=== PATIENT | female | born 1995 | race Caucasian/White ===

== ENCOUNTER 2016-05-11 20:17 | Outpatient (CLI) | payer OTHER ==
[~2016-05-11] VITALS: Ht 154.9 cm; Wt 97.1 kg
[~2016-05-11 20:17] MED LIST: DICLEGIS1 TCP PO; KEFLEX 500MG.500 MG PO; NOMEDS XX; PAXIL10 MG PO; PAXIL20 MG PO; PRENATAL PLUS1 TA1 PO; SEASONALE 30 MC1 TAB PO; VICODIN1 TAB PO
[2016-05-11 20:32] VITALS: BP 133/82
[2016-05-11 20:51] LABS: URINE BILIRUBIN - DIPSTICK NEGATIVE (NEG); URINE BLOOD 1+ (NEG)
[2016-05-14] MEDS ORDERED: NOMEDS XX (05:11)
== END 2016-05-11 21:25 | disposition home or self-care (01) ==
LOC: OB 20:17 → OBOUT 20:17
PROVIDERS: Nurse Practitioner Obstetrics & Gynecology
DX: O42.92 Full-term premature rupture of membranes, unspecified as to length of time between rupture and onset of labor (principal); Z3A.39 39 weeks gestation of pregnancy

== ENCOUNTER 2016-11-27 19:06 | Observation (INO) | payer OTHER ==
[~2016-11-27] VITALS: Ht 154.9 cm; Wt 91.9 kg
[~2016-11-27 19:06] MED LIST changes: +BENTYL10 M1 PO; +GAS RELIEF 8080 MG PO
[2016-11-27 19:10] VITALS: BP 158/81
[2016-11-27 19:37] LABS: HEMOGLOBIN 14.3 g/dL (12.2-16.2); LYMPH # 2.2 K/mm3 (0.7-4.5); LYMPH % 12.7 % (10-50.0)
[2016-11-27 19:39] LABS: URINE BILIRUBIN - DIPSTICK NEGATIVE (NEG); URINE BLOOD NEGATIVE (NEG)
--- NOTE | 2016-11-27 20:18 | Emergency Room Report ---
History of Present Illness Time Seen by 1999 Presenting Problem in Triage Pt arrived:Walked Presenting Problem:right lower abdominal pain since 1230 today. no n/v/d. 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 N Clinical Suspician of Infection? N Mental Status: 1 - Regular (Normal Baseline) Sepsis Risk:Possible Sepsis Risk Have you (or family members/close friends) recently traveled outside the [place]? N If Yes, where/when: Have you had exposure to infectious disease within the past month? TB? Other? Specify: Source patient, RN notes reviewed, family, old records Exam Limitations no limitations Comment onset or lower abd pain since noon with no fever or rash and no trauma Cardiac Chest Pain Chest pain indicative of cardiac No Timing/Duration this evening Severity moderate ALLERGIES Coded Allergies: No Known Allergies (09/20/16) History Medical History General CAD? No Angina: No AL: No Hypertension? No Hyperlipidemia? No CHF? No DVT? No PE? No COPD? No Asthma? No Anemia? No GERD? No Gastric ulcers? No GI Bleed? No Hernia? No Thyroid Problems? No Hypothyroidism? No CVA? No Seizures? No Diabetes? No Renal Insuffiency? No End Stage Renal Disease? No UTI? No Stones? No BPH? No GB Disease: Yes Nephritic Syndrome? No Asplenia? No Hepatitis? No Sickle Cell Disease? No Arthritis? No Migraines? No Cataracts? No Glaucoma? No MRSA? No HIV? No TB? No Anxiety? No Depression? No Cancer? No More? 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 Respiratory denies cough, denies shortness of breath, denies wheezing Cardiovascular denies chest pain, denies palpitations, denies syncope Gastrointestinal see HPI, abdominal pain, nausea, denies vomiting Genitourinary denies: dysuria, frequency, hesitancy, hematuria. Musculoskeletal denies back pain, denies joint pain, denies joint swelling, denies neck pain Skin denies rash Psychiatric/Neurological denies headache, denies seizure Physical Exam Vital Signs Vital Signs Date Time Temp Pulse Resp B/P Pulse O2 O2 Flow FiO2 Ox Delivery Rate 11/27 2006 100.5 132 20 135/72 100 11/27 1909 99.1 127 20 158/81 100 - WBC >12,000 or <4,000 or 10% bands? 2 or more SIRS Criteria Met? B/P:135/72 MAP:106 Creatinine >2.0? UA output<0.5ml/kg/hr for 2 hrs? Platelet count >100,000? Lactate >2.0mmol/1? INR >1.2 or PTT > than 60 sec? Evidence of Organ Dysfunction? Provider documented clinical suspician of infection? N Sepsis Criteria Count: 2 Sepsis Risk: Possible Sepsis Risk General Appearance no apparent distress Eye Exam - bilateral eye PERRL, bilateral eye EOMI Ear, Nose, Throat normal ENT inspection Neck supple Respiratory Status No: respiratory distress. Lung Sounds bilateral: lungs clear. Cardiovascular regular rate/rhythm, no murmur Peripheral Pulses Pulses normal Yes Gastrointestinal soft, no organomegaly, no pulsatile mass, no guarding, no rebound Extremities normal inspection Strength 4 Upper Ext (L), 4 Upper Ext (R), 4 Lower Ext (L), 4 Lower Ext (R) Neurologic alert, bird raiser II-XII nml as tested, no motor/sensory deficits Reflexes Reflexes normal No Mental status normal mood/affect Skin intact Medical Decision Making LABS/Meds/Orders Pt receiving controlled substance in ED? No Results/Orders Laboratory Tests 11/27/161914: Sodium 140, Potassium 3.7, Chloride 101, Carbon Dioxide 31, BUN 9, Creatinine 0.8, Estimated Creat Clear 154, Estimated GFR (MDRD) 91, Glucose 99, Calcium 9.5 , Total Bilirubin 0.5, AST 22, ALT 36, Alkaline Phosphatase 110, Total Protein 8.7 H, Albumin 4.2, Globulin 4.5 H, Albumin/Globulin Ratio 0.9 L, Amylase 41, Lipase 158, WBC 17.0 H, RBC 4.87, Hgb 14.3, Hct 41.7, MCV 85.5, RDW 13.3, Plt Count 187, MPV 8.6, Gran % 82.7 H, Gran # 14.1 H, Total Counted 100, Lymphocytes % 12.7, Monocytes % 4.3, Eosinophils % 0.3, Basophils % 0.1, Neutrophils 86 H, Lymphocytes (Manual) 14, Lymphocytes # 2.2, Monocytes # 0.7, Eosinophils # 0.0, Basophils # 0.0, Platelet Estimate NORMAL, Anisocytosis 1+, PUBS MCHC 34.3, MCH 29.3, Urine Color YELLOW, Urine Appearance SL CLOUDY, Urine pH 7.5, Ur Specific [place] 1.015, Urine Protein NEGATIVE, Urine Ketones NEGATIVE, Urine Blood NEGATIVE, Urine Nitrate NEGATIVE, Urine Bilirubin NEGATIVE , Urine Urobilinogen 1.0, Ur Leukocyte Esterase NEGATIVE, Urine RBC NONE, Urine WBC OCC, Ur Squamous Epith Cells 10-20, Amorphous Sediment 3+, Urine Bacteria 2+ , Urine Glucose NEGATIVE Current Medication Orders Sig/Tres Start time Last Medication Dose Route Stop Time Status Admin Sodium Chloride 1,000 ML .STK-MED ONE 11/28 2031 DC IV Sodium Chloride 1,000 ML .Q1H1M 11/27 2029 AC 11/27 IV 11/27 Sodium Chloride 10 ML PRN PRN 11/27 2029 AC IV 11/28 2019 Orders Procedure Date/time Status CT ABD & PELVIS W/O CONTRAST 11/[address] ABD W/RLQ PAIN REQ 11/27 1929 Complete IV SALINE LOCK 11/28 1927 Active URINALYSIS/COMPLETE 11/28 1927 Complete URINE 11/28 1927 Complete LIPASE 11/28 1927 Complete CBC WITH AUTO DIFF 11/28 1927 Complete CHEM 12 PROFILE 11/28 1927 Complete AMYLASE 11/28 1927 Complete CULTURE, URINE 11/27 1914 Active DIFFERENTIAL-WBC 11/27 1914 Complete XRAY/CT/US XRAY/CT/US CT abdomen, pelvis CT interpretation by discussed w/radiologist Time results known: 2046 CT Results abnormal (appendicitis) Departure Departure Time of Disposition 2046 Disposition Still a Patient Clinical Impression Primary Impression: Appendicitis, acute Qualifiers: Acute appendicitis type: with localized peritonitis Qualified Code: K35.3 - Acute appendicitis with localized peritonitis Condition STABLE Referrals SANDRA DEAN (Family) discussed with dr shoemaker ED Critical Care Critical Care No at [id number]
[2016-11-27 20:23] LABS: NEUTROPHILS 86 % (42-76)
--- NOTE | 2016-11-27 21:45 | HISTORY AND PHYSICAL REPORT ---
History of Present Illness Chief Complaint: RIGHT lower quadrant abdominal pain History of Present Illness: This is a 21-year-old female who presented to the emergency department after developing RIGHT lower quadrant abdominal pain around noon today. She states that she had "a little bit of sickness yesterday" but no significant pain. Today she developed fairly significant right-sided lower quadrant pain, but her "sickness" had essentially resolved. No fevers. No nausea or vomiting over the past 12 hours. Bowel movements have been fairly normal. A CT scan of her abdomen and pelvis showed signs consistent with early appendicitis. She has recently been treated for cholecystitis and choledocholithiasis with cholecystectomy and ERCP. These treatments were in late August/early September of this year. She has subsequently had her stent removed by way of follow-up ERCP. Past Medical History Denies: CAD, hypertension, asthma, diabetes mellitus. Surgical History Previous Surgery?Y Eye Exp.lap ORAL SURGERY Cholecystectomy, ERCP Allergies Coded Allergies: No Known Allergies (09/20/16) Medications: Reported Medications No Known Home Medications Family history Postive for: HTN. Smoking Hx Tobacco: No Smoker: Never Smoker Type: N/A Packs/day: N/A Are you/the child exposed to second-hand smoke: No Alcohol Alcohol: No Hx of Drug Use Drug Use? No Review of Systems Constitutional No: chills. Skin No: bruising. Immune/allergy No: anaphalaxis. Eyes No: vision loss. ENT No: nose bleed. Respiratory No: pneumonia. Cardiovascular No: palpitations. GI No: nausea, vomitting. (female) No: hematuria. Musculoskeletal No: myalgias. Heme No: petechia. Endocrine No: polydipsia. Neurological No: change in LOC, confusion. Psychiatric No: anxious. Physical Exam VS/I&O Vital Signs Date Time Temp Pulse Resp B/P Pulse O2 O2 Flow FiO2 Ox Delivery Rate 11/27 2105 99.7 125 20 110/71 100 11/27 2006 100.5 132 20 135/72 100 11/27 1910 99.1 127 20 158/81 100 Exam General appearance no acute distress Neck full ROM Respiratory no distress Cardiovascular regular rate and rhythm Abdomen soft (+ TTP in RLQ) Extremities moves all, no edema, no evidence of DVT Neurological CNII-XIII grossly intact, normal speech Psychiatric normal mood Skin no gross abnormalities Findings/Data CT scan of abdomen and pelvis reveals changes consistent with likely early appendicitis Dx/assessment/plan Problem List 1. Appendicitis, acute Code status: full code Discussed with: family, patient Plan: Laparoscopic appendectomy-I have discussed the risks and benefits and she agrees to proceed at [id number]
--- NOTE | 2016-11-27 23:25 | Operative Note ---
Surgeon/Diagnoses Surgeon/Atmospheric Chemist(s) Date of procedure: 11/27/16 Surgeon: MD Tenzin Hernadez Diagnoses Pre-op diagnosis: Appendicitis Post-op diagnosis same Procedure Procedure Procedure: Laparoscopic Appendectomy Indications: BARNEY ACEVEDO is a 21 year-old Female with a history of RIGHT lower quadrant pain and radiographic evidence of appendicitis Findings: Significant appendiceal inflammation with patchy suppuration No sign of obvious perforation Procedure Description: After informed consent was obtained, the patient was taken to the operating room and placed in the supine position. General anesthesia was induced and her abdomen was prepped and draped in a sterile fashion. After infiltration with local anesthetic and infraumbilical incision was made. A Veress needle was placed in position. The abdomen was insufflated. A 12 mm optical trocar was placed in position. Under direct visualization a 5 mm trocar was placed in the suprapubic position. An additional 5 mm trocar was placed in the LEFT lower quadrant. The appendix was elevated. Fairly severe inflammation with patchy suppuration was noted. No definitive perforation was seen. The mesoappendix was taken with harmonic guillermo. Endoloops (3) were used at the base of the appendix. The appendix was then transected with harmonic guillermo and placed in a retrieval bag. The appendix was removed through the infraumbilical trocar site. The RIGHT lower quadrant was thoroughly irrigated. No active bleeding or sign of injury was noted. The fascia at the infraumbilical trocar site was reapproximated utilizing the roberto carlos-close device. Pneumoperitoneum was released as the remaining trocars were removed. All wounds were irrigated and skin was closed with 4-0 Monocryl in a subcuticular fashion. Steri-Strips were applied. The patient's anesthetic agents were reversed and she was extubated prior to transfer to recovery. EBL (ml): 15 Anesthesia: GETA Complications: No immediate Specimens: Appendix Disposition Disposition: Stable to recovery from where she will be admitted to the floor. at [id number]
--- NOTE | 2016-11-27 23:33 | Anesthesia Record ---
Anesthesia Record Part I Total IV fluids: 2200 EBL (ml): 15 Urine Output: 400 B/P: 106/53 % SaO2: 95 Pulse: 105 Resps: 16 Temp: 98.6 Patient is: Drowsy, Nasal O2, Stable Stable to PACU at: 2325 at 2336
--- NOTE | 2016-11-27 23:34 | Anesthesia Record ---
Anesthesia Record Part II Discharge time: 2354 Destination: Second Floor PACU nurse assessment review? Yes Patient is: Stable Anesthesia complications? No at 5511
[2016-11-27 23:55] VITALS: BP 109/57
[2016-11-28] VITALS (16 sets, daily range): BP systolic 102–152; BP diastolic 52–70
[2016-11-28 00:11] LABS: URINE BILIRUBIN - DIPSTICK NEGATIVE (NEG); URINE BLOOD NEGATIVE (NEG)
--- NOTE | 2016-11-28 06:40 | RADIOLOGY REPORT PS360 ---
CT ABD PELVIS W/O CONTRAST CLINICAL INDICATION: RLQ PAIN SINCE 12:30 ORDERING PHYSICIAN: Scott Monet MD PATIENT AGE: 21 years COMPARISON: 02/17/2012 TECHNIQUE: Axial images obtained with sagittal and coronal reformats. PROCEDURE: Oral Contrast: None IV Contrast: None . FINDINGS: Lung bases are clear. There is diffuse hepatic steatosis. There has been prior cholecystectomy without obvious biliary dilatation. The spleen is mildly enlarged at 14 cm. The adrenal glands, pancreas, kidneys, ureters, and urinary bladder are unremarkable. No pelvic mass. The mid and distal aspect of the appendix is mildly distended and fluid-filled with mild stranding of the periappendiceal fat. The appendix measures up to 10 mm. No abscess or free air apparent. No intestinal obstruction, free air, diverticulitis, or pelvic mass evident. No acute bony anomalies. There are small mesenteric lymph nodes nonspecific IMPRESSION: The findings are consistent with appendicitis. No abscess or perforation apparent
[2016-11-28 06:45] LABS: LYMPH % 9.1 % (10-50.0)
--- NOTE | 2016-11-28 07:11 | POST-OP PROGRESS NOTE ---
Post Op Subjective Data Patient is post-op day 1 Subjective data: Feels "pretty good". Post op objective data Vitals,I&O,and Labs: Vital signs, intake and output,and available lab data for the last 24 hours is as noted below. Vital Signs Date Time Temp Pulse Resp B/P Pulse O2 O2 Flow FiO2 Ox Delivery Rate 11/28 0540 97.8 73 16 108/66 96 09/07 0540 98.4 76 16 152/70 93 09/07 0440 98.2 75 16 108/63 95 09/07 0240 98.4 81 16 107/63 96 09/07 0210 98.0 74 16 103/52 95 09/07 0140 98.2 74 16 105/60 96 09/07 0110 98.0 86 16 107/65 97 09/07 0052 16 09/07 0040 97.8 75 16 102/60 96 09/07 0025 98.0 78 16 109/63 96 09/07 0019 87 09/07 0019 98.0 92 16 107/62 09/07 0019 96 ROOM AIR 09/07 0010 98.0 92 16 107/62 96 09/07 0005 98.6 /06 2355 97.2 87 16 109/57 96 ROOM AIR 09/06 2355 97.2 87 16 109/57 96 ROOM AIR 09/06 2345 97 16 115/77 96 ROOM AIR 09/06 2335 92 16 108/60 97 OXYGEN /06 2333 98.6 105 16 106/53 95 09/06 2325 98.6 105 16 106/53 95 OXYGEN /06 2235 125 20 110/71 100 /2140 99.7 125 20 110/71 100 /06 6 99.7 125 20 110/71 100 /2006 100.5 132 20 135/72 100 09/06 1910 99.1 127 20 158/81 100 09/06 1500 09/06 2300 / 0700 Intake Total 700 460 Output Total 400 Balance 700 60 Intake, IV 700 435 Intake, Oral 25 Intake, Tube 0 Irrigant Output, 0 Emesis Output, 0 Estimated Blood Loss Output, Other 0 Output, Urine 400 Patient 87.544 kg 91.882 kg Weight Laboratory Tests Test Result Date Time Chemistry Sodium (mmoL/L) 139 11/28 0620 Potassium (mmoL/L) 4.1 11/29 619 Chloride (mmoL/L) 104 11/29 619 Carbon Dioxide (mmoL/L) 25 11/29 619 BUN (mg/dL) 8 11/29 619 Creatinine (mg/dL) 0.8 11/29 619 Estimated Creat Clear (ML/MIN) 161 11/29 619 Estimated GFR (MDRD) (ML/MIN) 91 11/29 619 Glucose (mg/dL) 164 11/29 619 Calcium (mg/dL) 8.6 11/29 619 Total Bilirubin (mg/dL) 0.5 11/27 1914 AST (U/L) 22 11/27 1914 ALT (U/L) 36 11/27 1914 Alkaline Phosphatase (U/L) 110 11/27 1914 Total Protein (gm/dL) 8.7 11/27 1914 Albumin (gm/dL) 4.2 11/27 1914 Globulin (gm/dL) 4.5 11/27 1914 Albumin/Globulin Ratio 0.9 11/27 1914 Amylase (U/L) 41 11/27 1914 Lipase (U/L) 158 11/27 1914 Hematology WBC (K/MM3) 17.0 11/27 1914 RBC (M/mm3) 4.87 11/27 1914 Hgb (g/dL) 14.3 11/27 1914 Hct (%) 41.7 11/27 1914 MCV (fl) 85.5 11/27 1914 RDW (%) 13.3 11/27 1914 Plt Count (K/mm3) 187 11/27 1914 MPV (fl) 8.6 11/27 1914 Gran % (%) 82.7 11/27 1914 Gran # (K/mm3) 14.1 11/27 1914 Total Counted (#CELLS) 100 11/27 1914 Lymphocytes % (%) 12.7 11/27 1914 Monocytes % (%) 4.3 11/27 1914 Eosinophils % (%) 0.3 11/27 1914 Basophils % (%) 0.1 11/27 1914 Neutrophils (%) 86 11/27 1914 Lymphocytes (Manual) (%) 14 11/27 1914 Lymphocytes # (K/mm3) 2.2 11/27 1914 Monocytes # (K/mm3) 0.7 11/27 1914 Eosinophils # (K/mm3) 0.0 11/27 1914 Basophils # (K/MM3) 0.0 11/27 1914 Platelet Estimate NORMAL 11/27 1914 Anisocytosis 1+ 11/27 1914 PUBS MCHC (g/dl) 34.3 11/27 1914 Immunology MCH (pg) 29.3 11/27 1914 Urines Urine Color YELLOW 11/27 2154 Urine Appearance CLEAR 11/27 2154 Urine pH 8.0 11/27 2154 Ur Specific [place] 1.010 11/27 2154 Urine Protein (mg/dL) NEGATIVE 11/27 2154 Urine Ketones (mg/dL) NEGATIVE 11/27 2154 Urine Blood NEGATIVE 11/27 2154 Urine Nitrate NEGATIVE 11/27 2154 Urine Bilirubin NEGATIVE 11/27 2154 Urine Urobilinogen (E.U./dL) 0.2 11/27 2154 Ur Leukocyte Esterase NEGATIVE 11/27 2154 Urine RBC (rbc/hpf) OCC 11/27 2154 Urine WBC (wbc/hpf) OCC 11/27 2154 Ur Squamous Epith Cells (#/hpf) 3-5 11/27 2154 Amorphous Sediment 3+ 11/27 1914 Urine Bacteria 1+ 11/27 2154 Urine Glucose NEGATIVE 11/27 2154 Physical Exam VS/I&O Vital Signs Date Time Temp Pulse Resp B/P Pulse O2 O2 Flow FiO2 Ox Delivery Rate 11/29 639 97.8 73 16 108/66 96 11/28 0540 98.4 76 16 152/70 93 11/28 0440 98.2 75 16 108/63 95 11/28 0240 98.4 81 16 107/63 96 11/28 0210 98.0 74 16 103/52 95 11/28 0140 98.2 74 16 105/60 96 11/28 0110 98.0 86 16 107/65 97 /07 0052 16 / 0040 97.8 75 16 102/60 96 / 0025 98.0 78 16 109/63 96 11/28 0019 87 / 0019 98.0 92 16 107/62 11/28 0019 96 ROOM AIR 11/28 0010 98.0 92 16 107/62 96 / 0005 98.6 11/27 2354 97.2 87 16 109/57 96 ROOM AIR 11/27 2354 97.2 87 16 109/57 96 ROOM AIR 11/27 2345 97 16 115/77 96 ROOM AIR 11/27 2335 92 16 108/60 97 OXYGEN 11/27 2333 98.6 105 16 106/53 95 11/27 2325 98.6 105 16 106/53 95 OXYGEN 11/27 2235 125 20 110/71 100 11/27 2141 99.7 125 20 110/71 100 11/27 2106 99.7 125 20 110/71 100 11/27 2006 100.5 132 20 135/72 100 11/27 1910 99.1 127 20 158/81 100 I&O 11/28 0700 Intake Total 1160 Output Total 400 Balance 760 Intake, IV 1135 Intake, Oral 25 Intake, Tube 0 Irrigant Output, 0 Emesis Output, 0 Estimated Blood Loss Output, Other 0 Output, Urine 400 Patient 91.882 kg Weight Exam General appearance no acute distress Respiratory no distress Cardiovascular regular rate and rhythm Abdomen soft (dressing intact) Post op patient plan Diagnoses: Suppurative appendicitis-overall, doing fairly well status post laparoscopic appendectomy Plan: Advance diet, Ambulate, Antibiotics This inpt stay is expected to cross 2 MNs from start of care Yes Additional data: IV antibiotics will be continued beyond the initial 24-hour postoperative period secondary to severe appendicitis with suppuration. Antibiotic Stewardship (2) Current Culture Results Microbiology 11/27 1914 URINE CC: Urine Culture - RECD Infxn that will respond? Yes Right drug,dose,and route? Yes More targeted antbx? No How long atbx needed? 5 at 0711
[2016-11-28 07:13] LABS: HEMOGLOBIN 12.2 g/dL (12.2-16.2)
--- NOTE | 2016-11-28 07:27 | PHARMACY CLINIC NOTE ---
Patient Demographics Patient Demographics Admission date: 11/27/16 Date: 11/28/16 Time: 725 Allergies Coded Allergies: No Known Allergies (11/27/16) HEIGHT- FT: 5 IN: 1.00 K.882 VTE General Information Labs: Laboratory Tests 11/28 1915 Hematology Hgb (12.2 - 16.2 g/dL) 12.2 14.3 Hct (37.0 - 47.0 %) 36.6 L 41.7 Plt Count (142 - 424 K/mm3) 174 187 Disclaimer The following section includes nursing documentation that has been pulled in for pharmacy review. Patient's VTE score: 0 Patient's VTE Risk: VERY LOW RISK Clinical trial participant? No VTE prophylaxis NQF [id number] VTE prophylaxis ordered? Yes Type of prophylaxis/treatment: ICD (post op) at 0726
[2016-11-29 00:02] VITALS: BP 115/64
[2016-11-29 03:53] VITALS: BP 124/58
--- NOTE | 2016-11-29 06:31 | POST-OP PROGRESS NOTE ---
Post Op Subjective Data Patient is post-op day 2 Subjective data: No complaints Post op objective data Vitals,I&O,and Labs: Vital signs, intake and output,and available lab data for the last 24 hours is as noted below. Vital Signs Date Time Temp Pulse Resp B/P Pulse O2 O2 Flow FiO2 Ox Delivery Rate 11/29 0353 98.0 59 20 124/58 94 ROOM AIR 11/29 0002 97.9 57 20 115/64 95 ROOM AIR 11/28 2137 20 11/28 1945 98.1 80 24 123/53 98 11/28 1924 98.1 80 24 123/53 98 ROOM AIR 11/28 1547 98.0 81 18 122/66 99 ROOM AIR 11/28 1142 18 11/28 1132 97.7 71 18 112/56 99 ROOM AIR 11/28 0833 98.0 70 18 107/63 95 11/28 0720 98.0 70 18 107/63 95 ROOM AIR 11/28 0640 97.8 73 16 108/66 96 / 1500 11/28 2300 11/29 0700 Intake Total 654 142 3938 Output Total Balance 212 841 3929 Intake, IV 1172 Intake, Oral 840 600 Laboratory Tests Test Result Date Time Chemistry Sodium (mmoL/L) 139 11/29 619 Potassium (mmoL/L) 4.1 11/29 619 Chloride (mmoL/L) 104 11/29 619 Carbon Dioxide (mmoL/L) 25 11/29 619 BUN (mg/dL) 8 11/29 619 Creatinine (mg/dL) 0.8 11/29 619 Estimated Creat Clear (ML/MIN) 161 11/29 619 Estimated GFR (MDRD) (ML/MIN) 91 11/29 619 Glucose (mg/dL) 164 11/29 619 Calcium (mg/dL) 8.6 11/29 619 Total Bilirubin (mg/dL) 0.5 11/27 1914 AST (U/L) 22 11/27 1914 ALT (U/L) 36 11/27 1914 Alkaline Phosphatase (U/L) 110 11/27 1914 Total Protein (gm/dL) 8.7 11/27 1914 Albumin (gm/dL) 4.2 11/27 1914 Globulin (gm/dL) 4.5 11/27 1914 Albumin/Globulin Ratio 0.9 11/27 1914 Amylase (U/L) 41 11/27 1914 Lipase (U/L) 158 11/27 1914 Hematology WBC (K/MM3) 11.4 11/29 619 RBC (M/mm3) 4.23 11/29 619 Hgb (g/dL) 12.2 11/29 619 Hct (%) 36.6 11/29 619 MCV (fl) 86.5 11/29 619 RDW (%) 13.4 11/29 619 Plt Count (K/mm3) 174 11/29 619 MPV (fl) 9.0 11/29 619 Gran % (%) 88.7 11/29 619 Gran # (K/mm3) 10.1 11/29 619 Total Counted (#CELLS) 100 11/27 1914 Lymphocytes % (%) 9.1 11/29 619 Monocytes % (%) 2.0 11/29 619 Eosinophils % (%) 0.2 11/29 619 Basophils % (%) 0.0 11/29 619 Neutrophils (%) 86 11/27 1914 Lymphocytes (Manual) (%) 14 11/27 1914 Lymphocytes # (K/mm3) 1.0 11/29 619 Monocytes # (K/mm3) 0.2 11/29 619 Eosinophils # (K/mm3) 0.0 11/29 619 Basophils # (K/MM3) 0.0 11/29 619 Platelet Estimate NORMAL 11/27 1914 Anisocytosis 1+ 11/27 1914 PUBS MCHC (g/dl) 33.0 11/29 619 Immunology MCH (pg) 28.5 11/29 619 Urines Urine Color YELLOW 11/27 2154 Urine Appearance CLEAR 11/27 2154 Urine pH 8.0 11/27 2154 Ur Specific [place] 1.010 11/27 2154 Urine Protein (mg/dL) NEGATIVE 11/27 2154 Urine Ketones (mg/dL) NEGATIVE 11/27 2154 Urine Blood NEGATIVE 11/27 2154 Urine Nitrate NEGATIVE 11/27 2154 Urine Bilirubin NEGATIVE 11/27 2154 Urine Urobilinogen (E.U./dL) 0.2 11/27 2154 Ur Leukocyte Esterase NEGATIVE 11/27 2154 Urine RBC (rbc/hpf) OCC 11/27 2154 Urine WBC (wbc/hpf) OCC 11/27 2154 Ur Squamous Epith Cells (#/hpf) 3-5 11/27 2154 Amorphous Sediment 3+ 11/27 1914 Urine Bacteria 1+ 11/27 2154 Urine Glucose NEGATIVE 11/27 2154 Physical Exam VS/I&O Vital Signs Date Time Temp Pulse Resp B/P Pulse O2 O2 Flow FiO2 Ox Delivery Rate 11/29 0353 98.0 59 20 124/58 94 ROOM AIR 11/29 0002 97.9 57 20 115/64 95 ROOM AIR 11/28 2137 20 11/28 1945 98.1 80 24 123/53 98 / 1924 98.1 80 24 123/53 98 ROOM AIR 11/28 1547 98.0 81 18 122/66 99 ROOM AIR 11/28 1142 18 11/28 1132 97.7 71 18 112/56 99 ROOM AIR 11/28 0833 98.0 70 18 107/63 95 /07 0720 98.0 70 18 107/63 95 ROOM AIR 11/28 0640 97.8 73 16 108/66 96 I&O 11/29 0700 Intake Total 2612 Output Total Balance 2612 Intake, IV 1172 Intake, Oral 1440 Exam General appearance no acute distress Respiratory no distress Cardiovascular regular rate and rhythm Abdomen soft (dressing intact) Post op patient plan Diagnoses: Suppurative appendicitis-overall, doing fairly well status post laparoscopic appendectomy Plan: Advance diet, Ambulate, Antibiotics This inpt stay is expected to cross 2 MNs from start of care Yes Additional data: Follow-up morning labs. She will likely be discharged home later today with continued by mouth antibiotics secondary to severe appendicitis with suppuration. Antibiotic Stewardship (2) Infxn that will respond? Yes Right drug,dose,and route? Yes More targeted antbx? No at 0630
[2016-11-29 06:50] LABS: LYMPH # 2.6 K/mm3 (0.7-4.5); LYMPH % 34.6 % (10-50.0)
[2016-11-29 07:19] VITALS: BP 110/66
[2016-11-29] MEDS ORDERED: AUGMENTIN 875-1 EACH PO (09:11)
[2016-11-29] MEDS ORDERED: NORCO 325 MG-51 TAB PO (09:11)
--- NOTE | 2016-11-29 09:15 | Discharge Summary Report ---
General Admit date: 11/27/16 Discharge date: 11/29/16 Admission Dx: Appendicitis Discharge Dx: Suppurative appendicitis Hospital course: The patient presented to the emergency department with increasing RIGHT lower quadrant abdominal pain. A CT scan confirmed appendicitis. She underwent laparoscopic appendectomy. Please see operative report for detail. She was found to have fairly severe appendicitis with suppuration. She was maintained on IV Zosyn and continued to progress well postoperatively. She remained afebrile with stable normal vital signs. She did initially have a leukocytosis, but this resolved by the time of discharge. On postoperative day 2, she was deemed appropriate for discharge home. NOTE: Continuation of antibiotics after discharge in the form of Augmentin for 5 additional days (secondary to severe appendicitis with suppuration) Condition at discharge: improved Problem List Medical Problems Appendicitis, acute Cellulitis and abscess of foot Delivery normal Foreign body in foot, left Gallbladder disease Vaginal bleeding Allergies Coded Allergies: No Known Allergies (11/27/16) Txs and Procedures Treatments and Procedures: Laparoscopic appendectomy Labs: Laboratory Tests 11/29/16 0623: WBC 7.6, RBC 3.81 L, Hgb 11.0 L, Hct 33.3 L, MCV 87.4, RDW 13.5, Plt Count 138 L, MPV 9.3, Gran % 61.9, Gran # 4.7, Lymphocytes % 34.6, Monocytes % 3.3, Eosinophils % 0.1, Basophils % 0.1, Lymphocytes # 2.6, Monocytes # 0.3, Eosinophils # 0.0, Basophils # 0.0, PUBS MCHC 33.0, MCH 28.9 11/28/16 0620: Sodium 139, Potassium 4.1, Chloride 104, Carbon Dioxide 25, BUN 8, Creatinine 0.8, Estimated Creat Clear 161, Estimated GFR (MDRD) 91, Glucose 164 H, Calcium 8.6, WBC 11.4 H, RBC 4.23, Hgb 12.2, Hct 36.6 L, MCV 86.5, RDW 13.4, Plt Count 174, MPV 9.0, Gran % 88.7 H, Gran # 10.1 H, Lymphocytes % 9.1 L, Monocytes % 2.0, Eosinophils % 0.2, Basophils % 0.0 L, Lymphocytes # 1.0, Monocytes # 0.2, Eosinophils # 0.0, Basophils # 0.0, PUBS MCHC 33.0, MCH 28.5 11/27/162154: Urine Color YELLOW, Urine Appearance CLEAR, Urine pH 8.0, Ur Specific [place] 1.010, Urine Protein NEGATIVE, Urine Ketones NEGATIVE, Urine Blood NEGATIVE, Urine Nitrate NEGATIVE, Urine Bilirubin NEGATIVE, Urine Urobilinogen 0.2, Ur Leukocyte Esterase NEGATIVE, Urine RBC OCC, Urine WBC OCC, Ur Squamous Epith Cells 3-5, Urine Bacteria 1+, Urine Glucose NEGATIVE 11/27/161914: Sodium 140, Potassium 3.7, Chloride 101, Carbon Dioxide 31, BUN 9, Creatinine 0.8, Estimated Creat Clear 154, Estimated GFR (MDRD) 91, Glucose 99, Calcium 9.5 , Total Bilirubin 0.5, AST 22, ALT 36, Alkaline Phosphatase 110, Total Protein 8.7 H, Albumin 4.2, Globulin 4.5 H, Albumin/Globulin Ratio 0.9 L, Amylase 41, Lipase 158, WBC 17.0 H, RBC 4.87, Hgb 14.3, Hct 41.7, MCV 85.5, RDW 13.3, Plt Count 187, MPV 8.6, Gran % 82.7 H, Gran # 14.1 H, Total Counted 100, Lymphocytes % 12.7, Monocytes % 4.3, Eosinophils % 0.3, Basophils % 0.1, Neutrophils 86 H, Lymphocytes (Manual) 14, Lymphocytes # 2.2, Monocytes # 0.7, Eosinophils # 0.0, Basophils # 0.0, Platelet Estimate NORMAL, Anisocytosis 1+, PUBS MCHC 34.3, MCH 29.3, Urine Color YELLOW, Urine Appearance SL CLOUDY, Urine pH 7.5, Ur Specific [place] 1.015, Urine Protein NEGATIVE, Urine Ketones NEGATIVE, Urine Blood NEGATIVE, Urine Nitrate NEGATIVE, Urine Bilirubin NEGATIVE , Urine Urobilinogen 1.0, Ur Leukocyte Esterase NEGATIVE, Urine RBC NONE, Urine WBC OCC, Ur Squamous Epith Cells 10-20, Amorphous Sediment 3+, Urine Bacteria 2+ , Urine Glucose NEGATIVE Microbiology Date/Time Procedure - Status Source Growth 11/27 1914 Urine Culture - COMP URINE CC at 0915
[2016-11-29 09:45] VITALS: BP 110/66
[2016-11-29 12:21] VITALS: BP 110/66
== END 2016-11-29 12:40 | disposition home or self-care (01) ==
LOC: ER 19:06 → SDC 21:31 → 2ND 21:32 → SDC 21:32 → 2ND 23:57
PROVIDERS: Emergency Medicine; Surgery
PROC: 0DTJ4ZZ Resection of Appendix, Percutaneous Endoscopic Approach (ICD-10-PCS; principal; 2016-11-27 21:00)
DX: K35.80 Unspecified acute appendicitis (principal)
CPT/HCPCS: G0378; J0131; J2405; J2543; J2710